=== PATIENT | female | born 1980 | race Caucasian/White ===

== ENCOUNTER 2023-10-15 14:27 | Emergency (ER) | payer MEDICARE, MEDICAID, SELFPAY ==
--- NOTE | ~2023-10-15 | US_ITS ---
EXAMINATION: US VENOUS ULTRASOUND WITH DOPPLER LOWER EXTREMITY, RIGHT CLINICAL INFORMATION: Right lower extremity swelling. Right lower extremity edema. COMPARISON: None available. TECHNIQUE: Ultrasound of the DEEP veins is performed from the hip to the calf with compression sonography and color and pulse Doppler assessment. Spectral analysis with color-flow imaging is performed. FINDINGS: There is normal venous compression and respiratory variation and augmented flow in the DEEP venous system. The visualized common femoral vein, superficial femoral vein, profunda femoral vein, popliteal vein, and the trifurcation region shows no evidence of deep venous thrombosis. There is no significant popliteal fossa cyst. Targeted examination the area of pain in the lateral mid calf of the right lower extremity was performed with a high-frequency linear transducer. There is some skin thickening. There are superficial varicosities which do not compress. There is no luminal color signal. There is reticulation and altered echotexture in the superficial tissues consistent with edema and/or cellulitis If the patient's symptoms persist, followup ultrasound in 5 days 7 days might be of value to exclude proximal propagation from a non-visualized calf vein. US/US venous duplex LE RT IMPRESSION: No DEEP venous thrombosis demonstrated in the right lower extremity. In the area of symptoms there are superficial varicosities and altered soft tissue echotexture consistent with edema and/or cellulitis. Some of the varicose veins in the superficial system are noncompressible suggesting thrombosis Superficial thrombophlebitis suspected.
[2023-10-15 14:38] VITALS: BP 117/83; PULSE 107; RESP 18; TEMP 36.9; O2SAT 96; BMI 45.9
--- NOTE | 2023-10-15 14:45 | ED.GENADULT ---
HPI - General Adult General Chief complaint: Extremity Problem Stated complaint: Bloodclot in legs Related Data Allergies Allergy/AdvReac Type Severity Reaction Status Date / Time meperidine [From Demerol] Allergy Vomiting Verified 10/15/23 14:53 Penicillins Allergy Unknown Verified 10/15/23 14:53 Sulfa (Sulfonamide Allergy Unknown Verified 10/15/23 14:53 Antibiotics) PMFSH Social History Social History Advance Directives: No Advance Directives Information Provided: No Do you have a plan to hurt others: No Plan Physical Exam ED Vital Signs: BMI result Body Mass Index 45.9 Course Course Course Narrative: This is an RME: Additional HPI, ROS, PE not included below will be deferred to primary provider. RME assessment and note performed by: Deb Cruz PA-C This is a [id number] who presents to the ER with complaints of R leg pain. Patient states that she has a history of superficial thrombophlebitis and has been on Eliquis intermittently for these problems. She states that she noticed increased pain and swelling to her right lower leg and decided to take extra Eliquis she had lying around the house. She states that the pain has worsened over the last week. She also reports that she is seeking help for alcohol detox. She states that she drinks approximately 20-30 nips of vodka per day, she states that she has a lot of stressors, states that her brother committed suicide in his teenage years and she was responsible for cleaning of the mess, the loss of her father, and her fiance who is diagnosed with multiple sclerosis. She denies any history of alcohol withdrawal seizures, states that this is the very 1st time she has ever sought help for alcohol dependency. She has 2 children at home and wants to be present for them in their life and knows that she needs help. Right lower leg with tenderness to palpation as well as slight lymphangitic spread proximal leave up right thigh. Patient also reports that she has used street Suboxone, states that she was due to have a hip replacement in the past and was on narcotic pain medication, states that she has been purchasing Suboxone off the street however states that this has not been an issue, she only takes this to reduce opioid withdrawal. Plan: Labs, ultrasound, further ER evaluation needed. Reevaluation(s) Reevaluation #1: Patient left without completing treatment. Medical Decision Making Lab Data 10/15/23 15:16 10/15/23 15:16 Labs: Lab Results 10/15/23 10/15/23 Range/Units 15:15 15:16 WBC 7.8 (4.8-10.8) X10*3/uL RBC 4.24 (4.20-5.50) X10*6/uL Hgb 15.4 (12.0-16.0) g/dl Hct 45.6 (37.0-47.0) % MCV 107.5 H (80.0-98.0) fL MCH 36.3 H (27.0-33.0) pg MCHC 33.8 (31.0-35.0) g/dl RDW 17.2 H (11.0-16.0) % Plt Count 209 (160-400) X10*3/uL MPV 8.6 L (9.4-12.3) fL Immature Gran % (Auto) 0.6 H (0.0-0.4) % Neut % (Auto) 64.5 (45-73) % Lymph % (Auto) 18.3 L (20-40) % [place] % (Auto) 7.1 (2-11) % Eos % (Auto) 8.7 H (0-4) % Baso % (Auto) 0.8 (0-2) % Lymph # (Auto) 1.4 (1.2-4.9) X10*3/uL [place] # (Auto) 0.6 (0.1-1.2) X10*3/uL Eos # (Auto) 0.7 H (0.0-0.4) X10*3/uL Baso # (Auto) 0.1 (0.0-0.2) X10*3/uL Abs Immat Gran (auto) 0.05 H (0.00-0.03) X10*3/uL Absolute Neuts (auto) 5.0 (2.0-8.3) x10*3/uL Absolute Nucleated RBC 0.000 (0.0-0.012) X10*3/uL Nucleated RBC % (auto) 0.0 (0.0-0.2) /100WBC PT 13.0 (11.1-13.3) SEC INR 1.1 (0.9-1.1) APTT 36.5 (26.0-36.8) SEC Sodium 143 (135-145) mmol/L Potassium 3.5 (3.3-5.1) mmol/L Chloride 104 (96-108) mmol/L Carbon Dioxide 27 (22-29) mmol/L Anion Gap 16 (12-20) BUN 6 L (9-16) mg/dL Creatinine 0.67 (0.5-1.4) mg/dL Estim Creat Clear Calc 127.8 Estimated GFR > 60 Random Glucose 99 (60-115) mg/dL Calcium 9.5 (8.4-10.2) mg/dL Total Bilirubin 0.5 (0.0-1.0) mg/dL Direct Bilirubin 0.2 (0.0-0.5) mg/dL AST 46 H (5-31) U/L ALT 49 H (0-31) U/L Alkaline Phosphatase 112 (39-117) U/L Total Protein 6.8 (6.5-8.0) g/dL Albumin 3.8 (3.5-5.0) g/dL Ethyl Alcohol 121 mg/dL Discharge Plan Discharge Clinical Impression: Leg pain, right, Alcohol abuse Patient Disposition: Left W/O Completing Treatment Discharge Date/Time: 10/15/23 18:05
[2023-10-15 15:19] LABS: MANUAL DIFF FLAG NO
[2023-10-15 15:22] LABS: Basophils Absolute Auto 0.1 X10*3/uL (0.0-0.2); Basophils Percent Auto 0.8 % (0-2); Eosinophils Absolute Auto 0.7 X10*3/uL (0.0-0.4); Eosinophils Percent Auto 8.7 % (0-4); Hematocrit 45.6 % (37.0-47.0); Hemoglobin 15.4 g/dl (12.0-16.0); Imm Gran Abs Auto 0.05 X10*3/uL (0.00-0.03); Imm Gran Pct Auto 0.6 % (0.0-0.4); Lymphocytes Absolute Auto 1.4 X10*3/uL (1.2-4.9); Lymphocytes Percent Auto 18.3 % (20-40); Mean Corpuscular HGB Conc 33.8 g/dl (31.0-35.0); Mean Corpuscular Hemoglobin 36.3 pg (27.0-33.0); Mean Corpuscular Volume 107.5 fL (80.0-98.0); Mean Platelet Volume 8.6 fL (9.4-12.3); Monocytes Absolute Auto 0.6 X10*3/uL (0.1-1.2); Monocytes Percent Auto 7.1 % (2-11); Neutrophils Percent Auto 64.5 % (45-73); Platelet Count 209 X10*3/uL (160-400); Red Blood Count 4.24 X10*6/uL (4.20-5.50); Red Cell Distribution Width 17.2 % (11.0-16.0); White Blood Count 7.8 X10*3/uL (4.8-10.8)
[2023-10-15 15:27] LABS: INTERNATIONAL NORM RATIO 1.1 (0.9-1.1)
[2023-10-15 15:29] LABS: Partial Thromboplastin Time 36.5 SEC (26.0-36.8)
[2023-10-15 15:33] LABS: Ethanol 121 mg/dL
[2023-10-15 15:37] LABS: Alanine Aminotransferase 49 U/L (0-31); Albumin Level 3.8 g/dL (3.5-5.0); Alkaline Phosphatase 112 U/L (39-117); Anion Gap 16 (12-20); Aspartate Amino Transferase 46 U/L (5-31); Bilirubin Direct 0.2 mg/dL (0.0-0.5); Bilirubin Total 0.5 mg/dL (0.0-1.0); Blood Urea Nitrogen 6 mg/dL (9-16); Calcium 9.5 mg/dL (8.4-10.2); Carbon Dioxide 27 mmol/L (22-29); Chloride 104 mmol/L (96-108); Creatinine Clr Calc Pharmacy 127.8; Estimated Glomerular Filt Rate > 60; Glucose Random 99 mg/dL (60-115); Potassium 3.5 mmol/L (3.3-5.1); Sodium 143 mmol/L (135-145); Total Protein 6.8 g/dL (6.5-8.0)
== END 2023-10-15 18:05 | disposition left against medical advice (07) ==
PROVIDERS: Physician Assistant Medical; Emergency Provider Emergency Medicine
DX: M79.604 Pain in right leg (principal); M79.605 Pain in left leg; R60.0 Localized edema; M25.50 Pain in unspecified joint; Z79.899 Other long term (current) drug therapy
CPT/HCPCS: 36415; 80048; 80076; 80307; 85025; 85610; 85730; 87040; 93971; 99281; 99284